=== PATIENT | female | born 1940 | race African-American/Black ===

== ENCOUNTER 2020-01-07 17:26 | Emergency (ER) | payer MEDICARE ==
[~2020-01-07] VITALS: Ht 162.6 cm; Wt 64.0 kg
[~2020-01-07 17:26] MED LIST: ALLO100T PO; AMIT10TA PO; ASCO500T3 PO; ASPI-482 PO; ASPI325T8 PO; BUTA1CAP29 PO; CARV12.547 PO; CARV3.12 PO; CHOL10003 PO; FURO-68 PO; FURO-69 PO; FURO40TA4 PO; HYDR-2868 PO; HYDR-2869 PO; HYDR-3165 PO; HYDR100T24 PO; INSU100I17 SQ; INSU100V12 SQ; ISOS20TA2 PO; ISOS60TA2 PO; LEVO100T5 PO; LISI10TA2 PO; NITR0.4T24 SL; ONDA-84 PO; PANT40TA3 PO; PANT40TA6 PO; POTA20TA4 PO; PRED20TA PO; SCOP1PAT11 TP; SIMV40TA18 PO; TRAM50TA PO; WARF-31 PO; WARF10TA40 PO
[2020-01-07] MEDS ORDERED: ASPIRIN CHEWABLE 81 MG TABLET. PO ONE (17:45)
[2020-01-07] MEDS ORDERED: MORPHINE SULFATE 2 MG/ML DISP.SYRIN. IV/SQ PRN (17:45)
[2020-01-07] MEDS ORDERED: NITROGLYCERIN SUBLINGUAL 0.4 MG BOTTLE OF 25. SL PRN (17:45)
--- NOTE | 2020-01-07 17:51 | EKG ---
[address] [address] Test Date: 2020-01-07 Test Time: 17:39:03 Pat Name: BETSY FERRIS Department: Room: Gender: F Video Intern: DEB : 1940 Requested By: HERMES CARABALLO Order Number: [id number] Reading MD: Peter Cohen Measurements Intervals [place] Rate: 70 P: 0 IN: 190 QRS: 231 QRSD: 130 T: 148 QT: 414 QTc: 450 Interpretive Statements SINUS RHYTHM RIGHT BUNDLE BRANCH BLOCK ABNORMAL ECG Electronically Signed On 01-08-2020 10:36:20 FLOTATION OPERATOR by Peter Cohen
--- NOTE | 2020-01-07 17:58 | PHYS DOC ---
Past History Past Medical History: Diabetes, Hypertension, Hypothyroid, Renal Failure, Other Additional Past Medical Histor: KIDNEY STONS (HERMES CARABALLO APRN) Past Medical History: Anemia, Arthritis, CAD, CHF, Renal Disease, Renal Failure (SHIRIN RICHEY MD) Past Surgical History: Cholecystectomy, , Hysterectomy, Other Additional Past Surgical Histo: BACK SURGERY, FISTULA PLACEMENT (HERMES CARABALLO APRN) Alcohol Use: None Drug Use: None (HERMES CARABLALO APRN) Adult General Chief Complaint Chief Complaint: CHEST PAIN HPI HPI Patient is a 79-year-old female patient with history of diabetes type 2, hypertension, high cholesterol, end-stage kidney disease on dialysis Tuesday last dialyzed Tuesday who presents to the ED today complaining of 8 out of 10 pumping left-sided chest pain that has been going on and off since this morning. Patient denies anything specifically exacerbating or relieving the pain. She states she tried Tylenol with no relief, humidified aspirin 81 mg with no relief. Denies any nausea, vomiting, cough or shortness of breath. (HERMES CARABALLO APRN) Review of Systems Review of Systems Constitutional: Denies fever or chills [] Eyes: Denies change in visual acuity, redness, or eye pain [] HENT: Denies nasal congestion or sore throat [] Respiratory: Denies cough or shortness of breath [] Cardiovascular: Reports left-sided chest pain GI: Denies abdominal pain, nausea, vomiting, bloody stools or diarrhea [] : Denies dysuria or hematuria [] Musculoskeletal: Denies back pain or joint pain [] Integument: Denies rash or skin lesions [] Neurologic: Denies headache, focal weakness or sensory changes [] All other systems were reviewed and found to be within normal limits, except as documented in this note. (HERMES CARABALLO APRN) Current Medications Current Medications Current Medications Medications (Trade) Dose Ordered Sig/Allyn Start Time Stop Time Status Last Admin Dose Admin Aspirin (Aspirin Chewable) 243 mg 1X ONCE 01/07/20 17:45 01/07/20 17:49 DC 01/07/20 17:52 243 MG Morphine Sulfate (Morphine 2mg Syringe) 2 mg PRN Q15MIN PRN 01/07/20 17:45 01/08/20 17:44 Nitroglycerin (Nitrostat) 0.4 mg PRN Q5MIN PRN 01/07/20 17:45 01/08/20 17:44 (HERMES CARABALLO APRN) Allergies Allergies Allergies Coded Allergies Type Severity Reaction Last Updated Verified No Known Drug Allergies 05/22/15 No (HERMES CARABALLO APRN) Physical Exam Physical Exam Constitutional: Well developed, well nourished, no acute distress, non-toxic appearance. [] HENT: Normocephalic, atraumatic, bilateral external ears normal, oropharynx moist, no oral exudates, nose normal. [] Eyes: PERRLA, EOMI, conjunctiva normal, no discharge. [] Neck: Normal range of motion, no tenderness, supple, no stridor. [] Cardiovascular:Heart rate regular rhythm, no murmur [] Lungs & Thorax: Bilateral breath sounds clear to auscultation [] Abdomen: Bowel sounds normal, soft, no tenderness, no masses, no pulsatile masses. [] Skin: Warm, dry, no erythema, no rash. [] Back: No tenderness, no CVA tenderness. [] Extremities: No tenderness, no cyanosis, no clubbing, ROM intact, no edema. [] Neurologic: Alert and oriented X 3, normal motor function, normal sensory function, no focal deficits noted. [] Psychologic: Affect normal, judgement normal, mood normal. [] (HERMES CARABALLO APRN) Current Patient Data Vital Signs Vital Signs Date Time Temp Pulse Resp B/P (MAP) Pulse Ox O2 Delivery O2 Flow Rate FiO2 01/07/20 17:44 99.1 69 18 128/56 (80) 100 Room Air (HERMES CARABALLO APRN) EKG EKG Above by DR. Rayo (HERMES CARABALLO APRN) EKG My interpretation EKG shows a sinus rhythm at 70 bpm. There is an anterior ventricular block and RVH. No findings of acute STEMI with contralateral changes but is an abnormal EKG. Does have Q-in I and a small S in III (SHIRIN RICHEY MD) Radiology/Procedures Radiology/Procedures []PROCEDURE: PORTABLE CHEST 1V EXAM: PORTABLE CHEST 1V 01/07/2020 5:42 PM CLINICAL INDICATION: Chest pain COMPARISON: Chest radiograph 01/25/2016 TECHNIQUE: AP upright view the chest FINDINGS: The patient is tilted to the right. The heart and mediastinum are normal. There are calcifications in the thoracic aorta. Lungs are adequately expanded. There are small pleural effusions and mild bibasilar opacities. No pneumothorax. There are new surgical clips in the right upper extremity. No acute osseous abnormality. IMPRESSION: Small bilateral pleural effusions and bibasilar opacities, likely atelectasis. Electronically signed by: Romana Love MD (01/07/2020 7:45 PM) [id number] DICTATED AND SIGNED BY: ROMANA LOVE MD DATE: 01/07/201944 CC: KRISTINE SCHMITT MD; SHIRIN RICHEY MD; HERMES CARABALLO APRN ~ (HERMES CARABALLO APRN) Heart Score HEART Score for Chest Pain: HEART Score for Chest Pain Response (Comments) Value History Slighlty/Non-Suspicious 0 ECG Normal 0 Age > 65 2 Risk Factors >3 Risk Factors or Hx CAD 2 Troponin >1-<3x Normal Limit 1 Total 5 Risk Factors: Risk Factors: DM, Current or recent (<one month) smoker, HTN, HLP, family history of CAD, obesity. Risk Scores: Risk Factors: DM, Current or recent (<one month) smoker, HTN, HLP, family his tory of CAD, obesity. (HERMES CARABALLO APRN) Course & Med Decision Making Course & Med Decision Making Pertinent Labs and Imaging studies reviewed. (See chart for details) This is a 79-year-old female patient presenting to the ED today with left-sided chest pain that began this morning. EKG is negative. Chest xray noted for small bilateral pleural effusions and bibasilar opacities, likely atelectasis. CBC with a WBC of 3.9 which is lower than patient's baseline. CMP with nothing really acute. Troponin 0.068. Patient has [employer] insurance, we are waiting for insurance approval for her to be admitted at [facility] although she will be transferred to a different facility that accepts [employer] insurance. Spoke with who accepted patient for admission [id number] Cohen who will f/u with patient EMS will transport to [place] (HERMES CARABALLO APRN) Dragon Disclaimer Dragon Disclaimer This electronic medical record was generated, in whole or in part, using a voice recognition dictation system. (HERMES CARABALLO APRN) Departure Departure: Impression: Primary Impression: Chest pain Additional Impressions: NSTEMI (non-ST elevated myocardial infarction) ESRD (end stage renal disease) Disposition: 05 DC/TRF OTHER TYPE INSTITUTI Condition: STABLE Referrals: KRISTINE SCHMITT MD (PCP) Attending Co-Sign Attending Co-Sign The patient was seen and interviewed as well as examined at the bedside. The chart was reviewed. The case was discussed. Agree with the plan of care. (SHIRIN RICHEY MD) Problem Qualifiers Primary Impression: Chest pain Chest pain type: unspecified Qualified Codes: R07.9 - Chest pain, unspecified HERMES CARABALLO APRN Jan 07, 2020 17:58 SHIRIN RICHEY MD Jan 07, 2020 19:21
[2020-01-07 18:46] VITALS: BP 130/55
[2020-01-07 19:21] LABS: BASO % 1 % (0-3); EOS # 0.1 x10^3/uL (0.0-0.7); EOS % 3 % (0-3); HEMATOCRIT 32.3 % (36.0-47.0); HEMOGLOBIN 10.5 g/dL (12.0-15.5); LYMPH # 0.3 x10^3/uL (1.0-4.8); LYMPH % 8 % (24-48); MEAN CORPUSCULAR HEMOGLOBIN 33 pg (25-35); MEAN CORPUSCULAR HGB CONC 33 g/dL (31-37); MEAN CORPUSCULAR VOLUME 101 fL (79-100); MONO # 0.3 x10^3/uL (0.0-1.1); MONO % 7 % (0-9); NEUT # 3.2 x10^3uL (1.8-7.7); NEUT % 82 % (31-73); PLATELET COUNT 203 x10^3/uL (140-400); RED BLOOD COUNT 3.18 x10^6/uL (3.50-5.40); RED CELL DISTRIBUTION WIDTH 14.9 % (11.5-14.5); WHITE BLOOD COUNT 3.9 x10^3/uL (4.0-11.0)
[2020-01-07 19:24] LABS: CALCIUM 10.6 mg/dL (8.5-10.1); CREATININE 5.4 mg/dL (0.6-1.0); GFR 9.3; POTASSIUM 3.6 mmol/L (3.5-5.1)
[2020-01-07 19:40] LABS: ALBUMIN/GLOBULIN RATIO 0.8 (1.0-1.7); TOTAL BILIRUBIN 0.3 mg/dL (0.2-1.0); TOTAL PROTEIN 6.6 g/dL (6.4-8.2)
--- NOTE | 2020-01-07 19:48 | RAD ---
EXAM: PORTABLE CHEST 1V 01/07/2020 5:42 PM CLINICAL INDICATION: Chest pain COMPARISON: Chest radiograph 01/25/2016 TECHNIQUE: AP upright view the chest FINDINGS: The patient is tilted to the right. The heart and mediastinum are normal. There are calcifications in the thoracic aorta. Lungs are adequately expanded. There are small pleural effusions and mild bibasilar opacities. No pneumothorax. There are new surgical clips in the right upper extremity. No acute osseous abnormality. IMPRESSION: Small bilateral pleural effusions and bibasilar opacities, likely atelectasis. Electronically signed by: Romana Love MD (01/07/2020 7:45 PM) [id number]
== END 2020-01-07 23:00 | disposition short-term general hospital (02) ==
LOC: ER 17:26
DX: I21.4 Non-ST elevation (NSTEMI) myocardial infarction (principal); E11.22 Type 2 diabetes mellitus with diabetic chronic kidney disease; I13.2 Hypertensive heart and chronic kidney disease with heart failure and with stage 5 chronic kidney disease, or end stage renal disease; I50.9 Heart failure, unspecified; N18.6 End stage renal disease; M19.90 Unspecified osteoarthritis, unspecified site; Z99.2 Dependence on renal dialysis; Z86.2 Personal history of diseases of the blood and blood-forming organs and certain disorders involving the immune mechanism; Z90.49 Acquired absence of other specified parts of digestive tract; Z98.890 Other specified postprocedural states; Z90.710 Acquired absence of both cervix and uterus
CPT/HCPCS: 36415; 71045; 80053; 82553; 83735; 84443; 84484; 85025; 85610; 85730; 93005; 99285-25

== ENCOUNTER 2020-01-26 14:39 | Observation (INO) | payer MEDICARE ==
[~2020-01-26] VITALS: Ht 162.6 cm; Wt 63.4 kg
--- NOTE | 2020-01-26 14:57 | EKG ---
[facility] ED [facility] [place] [id number] Test Date: 2020-01-26 Test Time: 14:53:21 Pat Name: BETSY FERRIS Department: Room: Gender: F Technical Fellow: : 1940 Requested By: HERMES CARABALLO Order Number: [id number] Reading MD: Measurements Intervals [place] Rate: 71 P: [place]: QRS: -30 QRSD: 138 T: 31 QT: 448 QTc: 492 Interpretive Statements SINUS RHYTHM ABNORMAL LEFT AXIS DEVIATION LEFT ANTERIOR FASCICULAR BLOCK RIGHT BUNDLE BRANCH BLOCK BIFASCICULAR BLOCK RVH WITH REPOLARIZATION ABNORMALITY QRS(T) CONTOUR ABNORMALITY CONSIDER ANTEROSEPTAL MYOCARDIAL DAMAGE ABNORMAL ECG RI6.02 No previous ECG available for comparison
[2020-01-26] MEDS ORDERED: ASPIRIN 325 MG TABLET PO ONE (15:00)
[2020-01-26] MEDS ORDERED: NITROGLYCERIN SUBLINGUAL 0.4 MG BOTTLE OF 25. SL PRN (15:00)
[2020-01-26] MEDS: MORPHINE SULFATE 4 MG/ML DISP.SYRIN. IV/SQ PRN (15:20)
--- NOTE | 2020-01-26 15:24 | PHYS DOC ---
Past History Past Medical History: Anemia, Arthritis, CAD, CHF, Renal Disease, Renal Failure Additional Past Medical Histor: KIDNEY STONS (HERMES CARABALLO APRN) Past Surgical History: Cholecystectomy, , Hysterectomy, Other Additional Past Surgical Histo: BACK SURGERY, FISTULA PLACEMENT (HERMES CARABALLO APRN) Alcohol Use: None Drug Use: None (HERMES CARABALLO APRN) Adult General Chief Complaint Chief Complaint: CHEST PAIN HPI HPI Patient is a 79-year-old female patient with history of CHF, CAD, ESRD on tuesday last dialyzed on because she is on a new schedule due to the holidays. She did Tuesday and this week. Patient presents today complaining of 8 out of 10 left-sided chest pain described as sharp intermittent fever January 06, 2021 when she was seen in the ED and transferred to [facility] [place]. He states the pain has been on and off since then it got worse today and is currently constant. Denies anything specifically exacerbating or relieving the pain. She states she had a cardiac catheterization done which was clean on January 08, 2020. (HERMES CARABALLO APRN) Review of Systems Review of Systems Constitutional: Denies fever or chills [] Eyes: Denies change in visual acuity, redness, or eye pain [] HENT: Denies nasal congestion or sore throat [] Respiratory: Denies cough or shortness of breath [] Cardiovascular: Reports chest pain GI: Denies abdominal pain, nausea, vomiting, bloody stools or diarrhea [] : Denies dysuria or hematuria [] Musculoskeletal: Denies back pain or joint pain [] Integument: Denies rash or skin lesions [] Neurologic: Denies headache, focal weakness or sensory changes [] All other systems were reviewed and found to be within normal limits, except as documented in this note. (HERMES CARABALLO APRN) Current Medications Current Medications Current Medications Medications (Trade) Dose Ordered Sig/Allyn Start Time Stop Time Status Last Admin Dose Admin Aspirin (Arya Aspirin) 325 mg 1X ONCE 01/26/20 15:00 01/26/20 15:01 DC Morphine Sulfate (Morphine 4mg Syringe) 4 mg PRN Q15MIN PRN 01/26/20 15:00 01/27/20 14:59 Nitroglycerin (Nitrostat) 0.4 mg PRN Q5MIN PRN 01/26/20 15:00 01/27/20 14:59 (HERMES CARABALLO APRN) Allergies Allergies Allergies Coded Allergies Type Severity Reaction Last Updated Verified No Known Drug Allergies 05/22/15 No (HERMES CARABALLO APRN) Physical Exam Physical Exam Constitutional: Well developed, well nourished, no acute distress, non-toxic appearance. [] HENT: Normocephalic, atraumatic, bilateral external ears normal, oropharynx moist, no oral exudates, nose normal. [] Eyes: PERRLA, EOMI, conjunctiva normal, no discharge. [] Neck: Normal range of motion, no tenderness, supple, no stridor. [] Cardiovascular:Heart rate regular rhythm Pulmonary-Diminished breath sounds to posterior lung bases Abdomen: Bowel sounds normal, soft, no tenderness, no masses, no pulsatile masses. [] Skin: Warm, dry, no erythema, no rash. Right upper extremity dialysis fistula with positive thrill and bruit. Back: No tenderness, no CVA tenderness. [] Extremities: No tenderness, no cyanosis, no clubbing, ROM intact, no edema. [] Neurologic: Alert and oriented X 3, normal motor function, normal sensory function, no focal deficits noted. [] Psychologic: Affect normal, judgement normal, mood normal. [] (HERMES CARABALLO APRN) EKG EKG [] (HERMES CARABALLO APRN) Radiology/Procedures Radiology/Procedures []PROCEDURE: PORTABLE CHEST 1V INDICATION: Reason: chest pain / Spl. Instructions: / History: COMPARISON: January 07, 2020 FINDINGS: Single view of chest obtained. Enlarged cardiomediastinal silhouette with calcific atherosclerosis. Degenerative changes of the spine with osteophyte formation. Bilateral basilar airspace opacity. Mild interstitial prominence bilaterally IMPRESSION: * Hazy opacities at lung bases could be atelectasis or infiltrate. * Mild interstitial prominence is again seen bilaterally. * Enlarged cardiomediastinal silhouette again seen Electronically signed by: Kristian Lopez MD (01/26/2020 4:16 PM) [id number] DICTATED AND SIGNED BY: KRISTIAN LOPEZ MD DATE: 01/26/20 [id number] CC: KRISTINE SCHMITT MD; [facility]; MULUPEGDianeHERMES HUNTER ~MTH0 0 (HERMES CARABALLO APRN) Heart Score HEART Score for Chest Pain: HEART Score for Chest Pain Response (Comments) Value History Slighlty/Non-Suspicious 0 ECG Normal 0 Age > 65 2 Risk Factors >3 Risk Factors or Hx CAD 2 Troponin < Normal Limit 0 Total 4 Risk Factors: Risk Factors: DM, Current or recent (<one month) smoker, HTN, HLP, family history of CAD, obesity. Risk Scores: Risk Factors: DM, Current or recent (<one month) smoker, HTN, HLP, family history of CAD, obesity. (HERMES CARABALLO APRN) Course & Med Decision Making Course & Med Decision Making Pertinent Labs and Imaging studies reviewed. (See chart for details) This is a 79-year-old female patient presenting to the ED today with left-sided chest pain that has been going on since January 07, 2020. On that day she was seen in this ED and transferred to [facility].. She had a clean cardiac catheterization done on January 10, 2020. She states the pain has been on and off since then but got worse in the last 1 day. EKG, chest x-ray, troponin, CBC, CMP, no acute findings. Will tx to [facility] due to dialysis needs Spoke with Dr. Silveira who accepted patient for admission at [facility]. (HERMES CARABALLO APRN) Course & Med Decision Making I assumed care of patient who is still awaiting transport to [facility]. Due to current COVID-19 pandemic and high capacity at all locations, patient still pending transport to [facility] and updated that this may not occur until tomorrow Patient had dialysis Tuesday, Tuesday and in anticipation of travel over the weekend with next scheduled dialysis session on Tuesday. I discussed case at length with patient and possibility of admission to [facility] despite not having nephrology services readily available. I discussed case with Dr. Silveira who agreed to admission here at [facility] in the interim with potential for transfer out to [facility] versus other facility with nephrology if this is indicated. At present, patient's laboratory values not indicating any need for urgent and/or emergent dialysis. He was agreeable to admission. Patient updated on this plan of care, she was amenable. All questions and concerns addressed prior to transportation to [facility] for further medical management (TESSIE RESTREPO DO) Dragon Disclaimer Dragon Disclaimer This electronic medical record was generated, in whole or in part, using a voice recognition dictation system. (HERMES CARABALLO APRN) Departure Departure: Impression: Primary Impression: Chest pain Additional Impression: ESRD (end stage renal disease) Disposition: 01 DC HOME SELF CARE/HOMELESS Admitting Physician: Matthew Silveira (TESSIE RESTREPO DO) Condition: STABLE Referrals: KRISTINE SCHMITT MD (PCP) Problem Qualifiers Primary Impression: Chest pain Chest pain type: unspecified Qualified Codes: R07.9 - Chest pain, unspecified HERMES CARABALLO APRN Jan 26, 2020 15:24 TESSIE RESTREPO DO Jan 26, 2020 23:31
[2020-01-26 16:01] LABS: BASO % 1 % (0-3); EOS # 0.1 x10^3/uL (0.0-0.7); EOS % 3 % (0-3); HEMATOCRIT 34.7 % (36.0-47.0); HEMOGLOBIN 11.3 g/dL (12.0-15.5); LYMPH # 0.3 x10^3/uL (1.0-4.8); LYMPH % 8 % (24-48); MEAN CORPUSCULAR HEMOGLOBIN 33 pg (25-35); MEAN CORPUSCULAR HGB CONC 33 g/dL (31-37); MEAN CORPUSCULAR VOLUME 102 fL (79-100); MONO # 0.2 x10^3/uL (0.0-1.1); MONO % 7 % (0-9); NEUT # 2.6 x10^3uL (1.8-7.7); NEUT % 81 % (31-73); PLATELET COUNT 205 x10^3/uL (140-400); RED CELL DISTRIBUTION WIDTH 14.8 % (11.5-14.5); WHITE BLOOD COUNT 3.2 x10^3/uL (4.0-11.0)
[2020-01-26 16:08] LABS: CALCIUM 9.7 mg/dL (8.5-10.1); GFR 10.2; POTASSIUM 3.6 mmol/L (3.5-5.1)
--- NOTE | 2020-01-26 16:19 | RAD ---
INDICATION: Reason: chest pain / Spl. Instructions: / History: COMPARISON: January 07, 2020 FINDINGS: Single view of chest obtained. Enlarged cardiomediastinal silhouette with calcific atherosclerosis. Degenerative changes of the spine with osteophyte formation. Bilateral basilar airspace opacity. Mild interstitial prominence bilaterally IMPRESSION: * Hazy opacities at lung bases could be atelectasis or infiltrate. * Mild interstitial prominence is again seen bilaterally. * Enlarged cardiomediastinal silhouette again seen Electronically signed by: Cedric Joy MD (01/26/2020 4:16 PM) [id number]
[2020-01-26 16:24] LABS: ALBUMIN 3.2 g/dL (3.4-5.0); ALBUMIN/GLOBULIN RATIO 0.8 (1.0-1.7); MAGNESIUM 2.1 mg/dL (1.8-2.4); TOTAL BILIRUBIN 0.5 mg/dL (0.2-1.0); TOTAL PROTEIN 7.3 g/dL (6.4-8.2)
[2020-01-26 16:36] LABS: % EOS 3 % (0-5); % LYMPHS 9 % (24-48); % MONOS 7 % (0-10); % SEGS 81 % (35-66)
[2020-01-26 16:37] LABS: PLT ESTIMATE ADEQUATE (ADEQUATE)
[2020-01-27 00:17] VITALS: BP 167/80
[2020-01-27 05:00] VITALS: BP 176/67
[2020-01-27] MEDS ORDERED: WARF7.5T45 PO (05:03)
[2020-01-27] MEDS ORDERED: ATOR10TA60 PO (05:03)
[2020-01-27] MEDS ORDERED: ISOS60TA2 PO (05:03)
[2020-01-27] MEDS ORDERED: HYDR100T24 PO (05:03)
[2020-01-27] MEDS ORDERED: CINA30TA2 PO (05:03)
[2020-01-27] MEDS: MORPHINE SULFATE 4 MG/ML DISP.SYRIN. IV/SQ PRN (09:32)
[2020-01-27 09:38] LABS: BACTERIA,URINE FEW /HPF (0-FEW); BILIRUBIN,URINE NEG (NEG); CLARITY,URINE HAZY; COLOR,URINE YELLOW; GLUCOSE,URINE NEG (NEG); NITRITE,URINE NEG (NEG); RBC,URINE 20-40 /HPF (0-2); SQUAMOUS EPITHELIAL CELL,UR MOD /LPF; UROBILINOGEN,URINE 0.2 mg/dL (0.2 mg/dL); WBC,URINE RARE /HPF (0-4); YEAST,URINE PRESENT /HPF
[2020-01-27] MEDS ORDERED: traMADol 50 MG TABLET PO PRN (10:30)
[2020-01-27 10:41] VITALS: BP 159/60
[2020-01-27] MEDS: LIDOCAINE (700MG/PATCH) PATCH. TD SCH (11:20)
--- NOTE | 2020-01-27 11:31 | HP ---
ADMIT DATE: 01/27/2020 HISTORY OF PRESENT ILLNESS: This is a very pleasant 79-year-old -[place] female who came in through the Emergency Room, has a long history of multiple medical problems. She has been having intermittent chest pain here for the last 2-3 days prior to being seen in the Emergency Room and being admitted for rule out AR protocol. She has had previous non-STEMI and the pain came on at rest and radiated in the left chest and left shoulder area and described it as a sharp pain. The patient also notes that she has been in the past where she is on dialysis on Tuesday, , Tuesday. She said she did changed this week to Tuesday, Tuesday, because of the holiday next week. In any case, the patient because of this chest pain was admitted to the hospital. Interesting enough, the chest x-ray shows possible atelectasis or infiltrate, mild interstitial prominence and enlarged cardiomediastinal silhouette with calcific atherosclerosis. In any case, she did have some mildly elevated BNP. She was somewhat short of breath. She is marked orthopneic. The patient will be admitted for heart failure, rule out AR protocol, Cardiology consultation, Nephrology consultation, if necessary may need to transfer her. Right now, she is stable. PAST MEDICAL HISTORY: Noted for cataract, headaches, heart attacks, heart failure, coronary artery disease, cardiac catheterization, ____, hypertension, pulmonary emboli, pneumonia, cholecystectomy, GERD, hysterectomy, x 2, renal disease, kidney stones, urinary tract infection, dialysis, arthritis, endocrine disorders, diabetes, hypothyroidism, pneumococcal vaccination is up-to-date as well as skin problems. She has a chronic rash on her arms, possibly allergic to some of the medication she is taking. FAMILY HISTORY: Hypertension in mother and father, mother and father also had diabetes. ALLERGIES: No known allergies. MEDICATIONS: Reviewed with ____ Pharmacy Department of this hospital including her warfarin, which will be changed over to Eliquis. Start atorvastatin 10 mg a day, isosorbide mononitrate, carvedilol, aspirin, tramadol, Protonix 40 mg b.i.d., insulin NovoLog 70/30 12 units at bedtime, Sensipar 30 mg daily, ascorbic acid 500, vitamin D3 2000, allopurinol 100 mg daily, hydralazine actually is 50 mg 3 times a day and 100 mg 3 times a day, carvedilol 3.125 mg b.i.d. SOCIAL HISTORY: No smoking, alcohol or drug use. REVIEW OF SYSTEMS: Outside of the shortness of breath, the patient denies any headaches, visual change, blurred vision, double vision. Denies any melena, hematochezia, or hematemesis. Does have chronic lower back pain, had previous surgery on her back, which was noted before. The patient notes she has chronic pain. We will use Lidoderm patch there. She also has this chronic rash on her skin, which is markedly notable throughout and she scratches at it. PHYSICAL EXAMINATION: GENERAL: The patient otherwise on exam is a very pleasant -[place] female. VITAL SIGNS: Blood pressure 167/78, respiratory rate 18, pulse 60, afebrile, 95-97% oxygen saturation, weight is 64 kilos. HEENT: The patient's head was atraumatic and normocephalic. Eyes: PERRLA without jaundice. The mouth and throat were normal. NECK: Supple, without JVD, carotid bruits nor thyromegaly. LUNGS: The patient's lungs were diminished throughout, poor movement of air, some crackles noted in the bases. CARDIOVASCULAR: Regular sinus rhythm; however, there was a 2-3/6 systolic ejection murmur over the left sternal border. NEUROLOGIC: As noted above. The patient is stable. LABORATORY DATA: EKG shows left anterior fascicular block, consider anteroseptal myocardial infarction, abnormal EKG noted. White count 3.2, hemoglobin 11.3, hematocrit 34, MCV of 102. Chemistries; 130, 3.6, 30 and 5. Her BNP was 10,300. Cardiac enzyme elevated at 0.06. TSH of 2. IMPRESSION: Chest pain, rule out myocardial infarction, history of non-ST elevation myocardial infarction in the past. The patient has had heart catheterization. We will continue to monitor. Consult Cardiology. Acute on top of chronic diastolic heart failure. The patient seems a little bit fluid overloaded, elevated BNP as well as some crackles in her lungs. Questionable to give her Lasix on her dialysis, but may need to leave this to Cardiology to help us with that. The patient also has chronic lower back pain, chronic dermatitis, type 2 diabetes, neutropenia, anemia of chronic disease, moderate protein malnutrition, hematuria. Continue to monitor her accordingly and adjust her medications and consult with Cardiology. KRISTINE SCHMITT MD DR: MAR/troy JOB#: [id number] / [id number]
[2020-01-27 13:15] VITALS: BP 172/66
[2020-01-27] MEDS: TRIAMCINOLONE ACETONIDE 0.5% TOPICAL CREAM 15GM TUBE. TP SCH ×2 (13:18→20:27)
[2020-01-27] MEDS ORDERED: NON FORMULARY ITEM (Hydralazine Hcl 1 TAB) PO SCH (14:00)
[2020-01-27 19:00] VITALS: BP 155/62
[2020-01-27] MEDS: INSULIN NPH/REG HUM 70/30 300 UNITS/3 ML VIAL. SQ SCH (20:26)
[2020-01-27] MEDS: APIXABAN 2.5 MG TABLET PO SCH (20:28)
[2020-01-27] MEDS: PANTOPRAZOLE 40 MG TABLET. PO SCH (20:28)
[2020-01-27] MEDS: ATORVASTATIN CALCIUM 10 MG TABLET. PO SCH (20:28)
[2020-01-27] MEDS: CARVEDILOL 3.125 MG TABLET PO SCH (20:29)
[2020-01-27] MEDS: PATCH REMOVAL. MC SCH (20:38)
[2020-01-27 22:55] VITALS: BP 144/69
[2020-01-28 05:00] VITALS: BP 155/69
[2020-01-28] MEDS: LEVOTHYROXINE 100 MCG TABLET PO SCH (05:32)
--- NOTE | 2020-01-28 07:59 | PDOC2 ---
CARDIAC CONSULT DATE OF CONSULT DOS: DATE: 01/28/20 TIME: 07:57 REASON FOR CONSULT Reason for Consult CHF REFERRING PHYSICIAN Referring Physician Dr. Chang SOURCE Source: Chart review, Patient HPI History of Present Illness This is a 79 yo female who presented secondary to chest pain. Reports she began having sharp, stabbing pain in her left chest yesterday. [place] a little short of breath. No dizziness, diaphoresis, or palpitations. Pain was worse with deep breathing. This morning, feeling slightly short of air. Had episode of vomiting this morning following ambulation to the restroom. Has a history of ESRD on HD. Is normally Tuesday, , Tuesday HD. This past week, switch he HD scheduled due to the Holiday this week. Last HD was . Does make urine. PAST MEDICAL HISTORY Past Medical History Cardiovascular: CAD, CHF, HTN, Hyperlipidemia, Valve insufficiency Pulmonary: Pulmonary embolus CENTRAL NERVOUS SYSTEM: Other (No pertinent history) GI: GERD Heme/Onc: Anemia NOS, Other (chronic anticoagulation) Hepatobiliary: Cholelithiasis Musculoskeletal: Osteoarthritis Infectious disease: No pertinent hx ENT: Allergic Rhinitis Renal/: Chronic renal failure Endocrine: Diabetes, Hypothyroidism, Hyperparathyroidism PAST SURGICAL HISTORY Past Surgical History Cholecystectomy, , Hysterectomy, Other (lumbar surgery) FAMILY HISTORY Family History: Other (noncontributory ) SOCIAL HISTORY Smoke: No ALCOHOL: none Drugs: None Lives: with Family (son ) CURRENT MEDICATIONS Current Medications Current Medications Aspirin (Arya Aspirin) 325 mg 1X ONCE PO Last administered on 01/26/20at 15:20; Start 01/26/20 at 15:00; Stop 01/26/20 at 15:01; Status DC Nitroglycerin (Nitrostat) 0.4 mg PRN Q5MIN PRN SL CP RATING > 1/10; Start 01/26/20 at 15:00; Stop 01/27/20 at 14:59; Status DC Morphine Sulfate (Morphine 4mg Syringe) 4 mg PRN Q15MIN PRN IV/SQ PAIN GREATER THAN 3/10 Last administered on 01/27/20at 09:32; Start 01/26/20 at 15:00; Stop 01/27/20 at 14:59; Status DC Allopurinol (Zyloprim) 200 mg DAILY PO ; Start 01/28/20 at 09:00; Stop 01/27/20 at 10:52; Status DC Ascorbic Acid (Vitamin C) 1,000 mg DAILY PO ; Start 01/28/20 at 09:00; Stop 01/27/20 at 10:48; Status DC Aspirin (Aspirin Enteric Coated) 81 mg DAILY PO ; Start 01/28/20 at 09:00 Atorvastatin Calcium (Lipitor) 10 mg QHS PO Last administered on 01/27/20at 20:28; Start 01/27/20 at 21:00 Carvedilol (Coreg) 3.125 mg BID PO ; Start 01/27/20 at 21:00 Vitamin D (Vitamin D3) 2,000 unit DAILY PO ; Start 01/28/20 at 09:00 Cinacalcet (Sensipar) 30 mg DAILY PO ; Start 01/28/20 at 09:00 Hydralazine HCl (Apresoline) 100 mg TID PO Last administered on 01/27/20at 20:30; Start 01/27/20 at 14:00 Levothyroxine Sodium (Synthroid) 100 mcg DAILY06 PO Last administered on 01/28/20at 05:32; Start 01/28/20 at 06:00 Pantoprazole Sodium (Protonix) 40 mg BID PO Last administered on 01/27/20at 20:28; Start 01/27/20 at 21:00 Tramadol HCl (Ultram) 50 mg PRN Q12HR PRN PO SEVERE PAIN 7-10 Last administered on 01/27/20at 20:28; Start 01/27/20 at 10:30 Warfarin Sodium (Coumadin) 7.5 mg DAILY PO ; Start 01/28/20 at 09:00; Stop 01/27/20 at 10:52; Status DC Non-Formulary Medication (Hydralazine Hcl ) 1 tab TID PO ; Start 01/27/20 at 14:00; Stop 01/27/20 at 11:05; Status DC Insulin Human Isoph/Insulin Regular (HumuLIN 70-30 VIAL) 12 units QHS SQ ; Start 01/27/20 at 21:00 Isosorbide Mononitrate (Imdur) 60 mg DAILY PO ; Start 01/28/20 at 09:00 Warfarin Sodium (Coumadin) 8 mg DAILY PO ; Start 01/28/20 at 09:00; Stop 01/27/20 at 10:52; Status DC Triamcinolone Acetonide (Kenalog 0.5%) 1 honorio BID TP Last administered on 01/27/20at 20:27; Start 01/27/20 at 10:45 Lidocaine (Lidoderm) 1 patch DAILY TD Last administered on 01/27/20at 11:20; Start 01/27/20 at 11:00 Miscellaneous (Lidoderm Patch Removal) 1 ea QHS MC Last administered on 01/27/20at 20:38; Start 01/27/20 at 21:00 Allopurinol (Zyloprim) 100 mg DAILY PO ; Start 01/28/20 at 09:00 Apixaban (Eliquis) 2.5 mg BID PO Last administered on 01/27/20at 20:28; Start 01/27/20 at 21:00 Active Scripts Active Tramadol Hcl (Tramadol HCl) 50 Mg Tablet 50 Mg PO Q12HR PRN Hydralazine Hcl 50 Mg Tablet 50 Mg PO TID Coreg (Carvedilol) 3.125 Mg Tablet 1 Tab PO BID Reported Isosorbide Mononitrate Er (Isosorbide Mononitrate) 60 Mg Tab.er.24h 1 Tab PO DAILY Warfarin Sodium 7.5 Mg Tablet 7.5 Mg PO DAILY Sensipar (Cinacalcet Hcl) 30 Mg Tablet 1 Tab PO DAILY 30 Days Atorvastatin Calcium 10 Mg Tablet 10 Mg PO QHS Hydralazine Hcl 100 Mg Tablet 1 Tab PO TID Ascorbic Acid 500 Mg Tablet 1,000 Mg PO DAILY last dose this morning next dose tomorrow Vitamin D3 (Cholecalciferol (Vitamin D3)) 1,000 Unit Tablet 2,000 Unit PO DAILY last dose this morning next dose tomorrow Pantoprazole Sodium 40 Mg Tablet. 40 Mg PO BID last dose this morning next dose tonight Novolog Mix 70-30 Vial (Insuln Asp Prt/Insulin Aspart) 100 Unit/1 Ml Vial 12 Unit SQ HS held last night for blood sugar 133 may resume tonight- check your blood sugar before taking Aspir 81 (Aspirin) 81 Mg Tablet. 81 Mg PO DAILY last dose this morning next dose tomorrow Warfarin Sodium 10 Mg Tablet 8 Mg PO DAILY last dose yesterday next dose this afternoon Allopurinol 100 Mg Tablet 2 Tab PO DAILY last dose this morning next dose tomorrow Levothyroxine Sodium 100 Mcg Tablet 100 Mcg PO DAILYAC last dose this morning next dose tomorrow ALLERGIES Allergies: Coded Allergies: No Known Drug Allergies (Unverified , 05/22/15) ROS Review of Systems 14 point ROS conducted with pertinent positives noted above in HPI PHYSICAL EXAM Physical Exam General: Alert, Oriented X3, Cooperative, No acute distress HEENT: Atraumatic, Mucous membr. moist/pink Lungs: Other (basilar crackles) Heart: Regular rate (SR), Normal S1, Normal S2, Other (3/6 apical systolic murmur. ) Abdomen: Soft, No tenderness Extremities: No cyanosis, trace LE edema Skin: warm and dry Neuro: Normal speech, Sensation intact Psych/Mental Status: Mental status NL, Mood NL MUSCULOSKELETAL: Osteoarthritic changes both hands VITALS Vital Signs Vital Signs Date Time Temp Pulse Resp B/P (MAP) Pulse Ox O2 Delivery O2 Flow Rate FiO2 01/28/20 05:00 98.0 66 18 155/69 (97) 92 Room Air LABS LABS Laboratory Tests Test 01/26/20 15:40 01/26/20 19:15 01/26/20 23:00 01/27/20 07:50 White Blood Count 3.2 x10^3/uL (4.0-11.0) Red Blood Count 3.40 x10^6/uL (3.50-5.40) Hemoglobin 11.3 g/dL (12.0-15.5) Hematocrit 34.7 % (36.0-47.0) Mean Corpuscular Volume 102 fL (79-100) Mean Corpuscular Hemoglobin 33 pg (25-35) Mean Corpuscular Hemoglobin Concent 33 g/dL (31-37) Red Cell Distribution Width 14.8 % (11.5-14.5) Platelet Count 205 x10^3/uL (140-400) Neutrophils (%) (Auto) 81 % (31-73) Lymphocytes (%) (Auto) 8 % (24-48) Monocytes (%) (Auto) 7 % (0-9) Eosinophils (%) (Auto) 3 % (0-3) Basophils (%) (Auto) 1 % (0-3) Neutrophils # (Auto) 2.6 x10^3uL (1.8-7.7) Lymphocytes # (Auto) 0.3 x10^3/uL (1.0-4.8) Monocytes # (Auto) 0.2 x10^3/uL (0.0-1.1) Eosinophils # (Auto) 0.1 x10^3/uL (0.0-0.7) Basophils # (Auto) 0.0 x10^3/uL (0.0-0.2) Segmented Neutrophils % 81 % (35-66) Lymphocytes % 9 % (24-48) Monocytes % 7 % (0-10) Eosinophils % 3 % (0-5) Platelet Estimate Adequate (ADEQUATE) Prothrombin Time 28.2 SEC (9.4-11.4) Prothromb Time International Ratio 2.8 (0.9-1.1) Activated Partial Thromboplast Time 30 SEC (23-33) Sodium Level 135 mmol/L (136-145) Potassium Level 3.6 mmol/L (3.5-5.1) Chloride Level 100 mmol/L (98-107) Carbon Dioxide Level 25 mmol/L (21-32) Anion Gap 10 (6-14) Blood Urea Nitrogen 30 mg/dL (7-20) Creatinine 5.0 mg/dL (0.6-1.0) Estimated GFR (Cockcroft-Gault) 10.2 BUN/Creatinine Ratio 6 (6-20) Glucose Level 99 mg/dL (70-99) Calcium Level 9.7 mg/dL (8.5-10.1) Magnesium Level 2.1 mg/dL (1.8-2.4) Total Bilirubin 0.5 mg/dL (0.2-1.0) Aspartate Amino Transf (AST/SGOT) 19 U/L (15-37) Alanine Aminotransferase (ALT/SGPT) 17 U/L (14-59) Alkaline Phosphatase 73 U/L (46-116) Creatine Kinase 128 U/L (26-192) Creatine Kinase MB (Mass) 0.7 ng/mL (0.0-3.6) Creatine Kinase MB Relative Index 0.5 % (0-4) Troponin I Quantitative 0.054 ng/mL (0-0.055) 0.055 ng/mL (0-0.055) 0.064 ng/mL (0-0.055) XH-Lhj-B-Type Natriuretic Peptide 88420 pg/mL (0-449) Total Protein 7.3 g/dL (6.4-8.2) Albumin 3.2 g/dL (3.4-5.0) Albumin/Globulin Ratio 0.8 (1.0-1.7) Lipase 79 U/L (73-393) Thyroid Stimulating Hormone (TSH) 2.210 uIU/mL (0.358-3.740) Urine Collection Type Unknown Urine Color Yellow Urine Clarity Hazy Urine pH 7.0 Urine Specific Jackson 1.020 Urine Protein >100 mg/dl (NEG-TRACE) Urine Glucose (UA) Neg mg/dL (NEG) Urine Ketones (Stick) Neg mg/dL (NEG) Urine Blood Small (NEG) Urine Nitrite Neg (NEG) Urine Bilirubin Neg (NEG) Urine Urobilinogen Dipstick 0.2 mg/dL (0.2 mg/dL) Urine Leukocyte Esterase Neg (NEG) Urine RBC 20-40 /HPF (0-2) Urine WBC Rare /HPF (0-4) Urine Squamous Epithelial Cells Mod /LPF Urine Bacteria Few /HPF (0-FEW) Urine Yeast Present /HPF ECHOCARDIOGRAM Echocardiogram <Conclusion> The left ventricle is normal size. The left ventricular systolic function is normal and the ejection fraction is within normal range. The Ejection Fraction is 55-60%. There is mild concentric left ventricular hypertrophy. Doppler and Color Flow revealed trace aortic regurgitation. Calculated aortic valve area is 1.87 cm2 with maximum pressure gradient of 45 mmHg and mean pressure gradient of 24 mmHg. Doppler and color-flow analysis revealed mild to moderate aortic stenosis. Doppler and Color-flow revealed mild mitral regurgitation. Doppler and Color Flow revealed mild to moderate tricuspid regurgitation with an estimated PAP of 42 mmHg. DATE: 01/09/20 0942 HEART CATH Heart Cath CORONARY ANGIOGRAPHY: LM is a large caliber vessel with normal angiographic appearance. LAD is a large caliber vessel with proximal 30% stenosis. D1 is a moderate caliber vessel with normal angiographic appearance. LCx is a moderate caliber non-dominant vessel with mild luminal irregularities. OM1 is a moderate caliber vessel with normal angiographic appearance. RCA is a large caliber dominant vessel with mild luminal irregularities. RPDA is a moderate caliber vessel with normal angiographic appearance. Conclusion 1. No significant coronary disease. Likely Type 2 NSTEMI Recommendations Aggressive Medical Therapy DATE: 01/08/20 1400 ASSESSMENT/PLAN Assessment/Plan 1. Chest pain, atypical. Cath 01/08/20 reveled 30 % lesion to LAD otherwise no significant CAD. 2. Acute on chronic diastolic CHF: Recent echo with normal EF and wall motion 3. Mild troponin elevation; highest 0.064. Type II, demand ischemia. Recent cath as noted above 4. ESRD on HD; lst HD . 4. Hyperlipidemia; statin 5. Hypertension; controlled 6. Hx of PE/DVT with chronic warfarin therapy: INR 2.8 7. Hypothyroidism: on replacement 8. ; mild to moderate per recent echo 9. Chronic RBBB 10. Leukopenia Recommendations Will try dose of Lasix as she makes urine Additional fluid off loading per HD; is schedule for HD tomorrow Continue secondary prevention measures. Supportive care JUAN FRANCISCO JONES APRN Jan 28, 2020 07:59
[2020-01-28] MEDS ORDERED: FUROSEMIDE 40 MG/4 ML VIAL IVP ONE (08:30)
[2020-01-28] MEDS ORDERED: POTASSIUM CHLORIDE 10 MEQ TABLET.ER. PO ONE (08:30)
[2020-01-28] MEDS ORDERED: ONDANSETRON ODT 4 MG TAB.RAPDIS PO PRN (08:45)
[2020-01-28] MEDS: CARVEDILOL 3.125 MG TABLET PO SCH ×2 (08:50→20:14)
[2020-01-28] MEDS: APIXABAN 2.5 MG TABLET PO SCH ×2 (08:50→20:12)
[2020-01-28] MEDS: CINACALCET HCL 30 MG TABLET PO SCH (08:51)
[2020-01-28] MEDS: PANTOPRAZOLE 40 MG TABLET. PO SCH ×2 (08:51→20:13)
[2020-01-28] MEDS: ISOSORBIDE MONONITRATE ER 30 MG TAB.ER.24H PO SCH (08:59)
[2020-01-28] MEDS: CHOLECALCIFEROL (VITAMIN D3) 1,000 UNIT TABLET PO SCH (09:00)
[2020-01-28] MEDS ORDERED: ALLOPURINOL 100 MG TABLET. PO SCH (09:00)
[2020-01-28] MEDS ORDERED: WARFARIN 7.5 MG TABLET. PO SCH (09:00)
[2020-01-28] MEDS: ALLOPURINOL 100 MG TABLET. PO SCH (09:00)
[2020-01-28] MEDS: ASPIRIN ENTERIC COATED 81 MG TABLET.DR. PO SCH (09:00)
[2020-01-28] MEDS ORDERED: WARFARIN 10 MG TABLET. PO SCH (09:00)
[2020-01-28] MEDS: TRIAMCINOLONE ACETONIDE 0.5% TOPICAL CREAM 15GM TUBE. TP SCH ×2 (09:00→20:43)
[2020-01-28] MEDS ORDERED: ASCORBIC ACID 500 MG TABLET PO SCH (09:00)
[2020-01-28] MEDS: LIDOCAINE (700MG/PATCH) PATCH. TD SCH (09:01)
[2020-01-28 10:45] VITALS: BP 129/67
[2020-01-28 12:49] LABS: BASO % 0 % (0-3); EOS # 0.1 x10^3/uL (0.0-0.7); EOS % 2 % (0-3); HEMATOCRIT 29.8 % (36.0-47.0); HEMOGLOBIN 9.7 g/dL (12.0-15.5); LYMPH # 0.2 x10^3/uL (1.0-4.8); LYMPH % 5 % (24-48); MEAN CORPUSCULAR HEMOGLOBIN 33 pg (25-35); MEAN CORPUSCULAR HGB CONC 33 g/dL (31-37); MEAN CORPUSCULAR VOLUME 101 fL (79-100); MONO # 0.3 x10^3/uL (0.0-1.1); MONO % 7 % (0-9); NEUT # 3.9 x10^3uL (1.8-7.7); NEUT % 86 % (31-73); PLATELET COUNT 195 x10^3/uL (140-400); RED BLOOD COUNT 2.94 x10^6/uL (3.50-5.40); RED CELL DISTRIBUTION WIDTH 14.8 % (11.5-14.5); WHITE BLOOD COUNT 4.5 x10^3/uL (4.0-11.0)
[2020-01-28 12:58] LABS: CALCIUM 9.1 mg/dL (8.5-10.1); CREATININE 5.5 mg/dL (0.6-1.0); GFR 9.1
--- NOTE | 2020-01-28 14:44 | RAD ---
ACUTE ABDOMEN SERIES History: Abdominal pain and nausea Comparison: AP chest, January 26, 2020. Findings: Frontal chest and supine and upright views of the abdomen. Bibasilar airspace disease is worse. Stable cardiomegaly. Atherosclerotic and tortuous thoracic and abdominal aorta. There is small left pleural effusion. There is no pneumothorax. No pneumoperitoneum is identified. No dilated air-filled loops of bowel are seen. Bowel gas pattern is nonobstructive. Scattered stool in the colon. Cholecystectomy. There is infrarenal IVC filter. No obvious organomegaly. Bones unremarkable. IMPRESSION: 1. Worsening of bibasilar airspace disease. 2. Left pleural effusion. 3. Nonobstructive bowel gas pattern. Electronically signed by: Montana Mckeon MD (01/28/2020 2:41 PM) [facility]
[2020-01-28 15:17] VITALS: BP 123/68
[2020-01-28 19:27] VITALS: BP 122/61
[2020-01-28] MEDS: ATORVASTATIN CALCIUM 10 MG TABLET. PO SCH (20:13)
[2020-01-28] MEDS: PATCH REMOVAL. MC SCH (20:39)
[2020-01-28] MEDS: INSULIN NPH/REG HUM 70/30 300 UNITS/3 ML VIAL. SQ SCH (20:40)
--- NOTE | 2020-01-28 22:05 | PN ---
DATE: SUBJECTIVE: The patient came in with chest pain and abdominal pain this morning with nausea and vomiting. X-ray showed a continued possible infiltrate in the right lower lobe, although the patient herself was not running any temperature. She was started on Rocephin. We are also attempting her to transfer for dialysis in the morning as well as multiple other problems including her nausea, vomiting and severe pneumonia of the right lower lobe. OBJECTIVE: VITAL SIGNS: Blood pressure 122/60, respiratory rate 20, pulse 62, afebrile. GENERAL: The patient is alert and oriented. LUNGS: Show some crackles in the right lower lobe. CARDIOVASCULAR: Regular sinus rhythm with 3 to 4/6 systolic ejection murmur. ABDOMEN: Soft, diffuse tenderness in the epigastric area, but imaging does not show any acute blockage or obstruction there. There is a left pleural effusion and nonobstructive bowel gas pattern. NEUROLOGIC: The patient is otherwise resting fairly comfortably and will continue to be monitored. Her hemoglobin did drop down to 9.7 and 29. IMPRESSION AND PLAN: Pneumonia of the right lower lobe; epigastric discomfort with nausea and vomiting; anemia; leukopenia; chronic kidney disease stage 5, on dialysis; slightly elevated troponins. TSH and lipase all normal. Her BNP was 10,000. We tried her on low dose Lasix, so she can produce some urine. Otherwise, her albumin was low at 3.2. Some moderate protein malnutrition, try to get her discharge and transferred in the morning. KRISTINE SCHMITT MD DR: MAR/troy JOB#: [id number] / [id number]
[2020-01-28 22:20] VITALS: BP 133/61
[2020-01-29] MEDS: LEVOTHYROXINE 100 MCG TABLET PO SCH (04:58)
[2020-01-29 05:09] VITALS: BP 131/65
[2020-01-29] MEDS: CHOLECALCIFEROL (VITAMIN D3) 1,000 UNIT TABLET PO SCH (07:50)
[2020-01-29] MEDS: ASPIRIN ENTERIC COATED 81 MG TABLET.DR. PO SCH (07:50)
[2020-01-29] MEDS: ISOSORBIDE MONONITRATE ER 30 MG TAB.ER.24H PO SCH (07:50)
[2020-01-29] MEDS: PANTOPRAZOLE 40 MG TABLET. PO SCH (07:50)
[2020-01-29] MEDS: ALLOPURINOL 100 MG TABLET. PO SCH (07:50)
[2020-01-29 07:51] VITALS: BP 131/65
[2020-01-29] MEDS: CINACALCET HCL 30 MG TABLET PO SCH (07:51)
[2020-01-29] MEDS: APIXABAN 2.5 MG TABLET PO SCH (07:51)
[2020-01-29] MEDS: CARVEDILOL 3.125 MG TABLET PO SCH (07:51)
[2020-01-29] MEDS: LIDOCAINE (700MG/PATCH) PATCH. TD SCH (07:52)
[2020-01-29] MEDS: TRIAMCINOLONE ACETONIDE 0.5% TOPICAL CREAM 15GM TUBE. TP SCH (07:56)
[2020-01-29] MEDS ORDERED: TRIA15CR50 TP (08:38)
[2020-01-29] MEDS ORDERED: ONDA4TAB12 PO (08:38)
[2020-01-29] MEDS ORDERED: LIDO700A21 TD (08:38)
[2020-01-29] MEDS ORDERED: ALLO100T PO (08:38)
[2020-01-29] MEDS ORDERED: APIX2.5T PO (08:38)
[2020-01-29] MEDS ORDERED: CEFU250T59 PO (09:08)
--- NOTE | 2020-01-30 05:31 | DS ---
DATE OF DISCHARGE: 01/29/2020 HOSPITAL COURSE: A 79-year-old female, recently had non-STEMI earlier this month. The patient has made good progress, although she came in for the last 2-3 days, been having problems with a sharp pain in her chest. While in the hospital though, she began to develop nausea and vomiting and had epigastric discomfort as well. The patient was admitted, given fluids, but to a small degree. The patient is also in chronic renal failure stage V and on dialysis. The patient was started on Rocephin for there was an infiltrative process in the right lower lobe. Although her vital signs indicate no fever, blood pressure 130/60, respiratory rate 20, pulse 60, afebrile. The patient does have a history of elevated sugars, which may be compromising her immune system. Her BNP was 10,300. The patient's albumin low at 3.2. She was seen by Cardiology who attempted to give her Lasix to see if she could produce any urine. The patient also was attempted to be transferred down to [place] and apparently, they were on diversion. The patient did not want to wait and basically left against medical advice as she was encouraged to continue IV antibiotic therapy, felt best that she needed to be in the hospital, but could not stay here at [facility] because she needed dialysis down there at [place] and consequently, [place] did not have a bed for her, so this became quite a problem for the patient. She was placed on oral antibiotic therapy, continue that. Follow up with her dialysis physician down there at [place] and make further assessment as indicated. The patient's nausea and vomiting seemed to resolve. She was able to eat and drink by the time she left and she will continue to follow up accordingly as an outpatient. IMPRESSION: Pneumonia of the right lower lobe, unknown etiology; epigastric discomfort with nausea, vomiting, anemia, leukopenia; chronic kidney disease stage V, on dialysis; acute on top of chronic congestive heart failure, moderate protein malnutrition, severe aortic valve stenosis. The patient will be discharged home. Follow up with Cardiology as well as she needs to get down to her dialysis appointment today and that may help her with her situation with her fluid retention, heart failure. We will continue to monitor her as an outpatient. She will be on a heart healthy, diabetic, dialysis diet and make further evaluation on her as indicated. She will follow up with her optometric aide as well as other specialists as indicated by her multiplicity of medical problems. KRISTINE SCHMITT MD DR: MAR/troy JOB#: [id number] / [id number]
== END 2020-01-29 08:43 | disposition still patient (30) ==
LOC: ER 14:39 → 1 SOUTH 01-27 → OBSVTOIN 01-27 00:48 → INTOOBSV 01-27 00:48
PROVIDERS: ADMIT Internal Medicine; ATTEND Family Medicine
DX: J18.9 Pneumonia, unspecified organism (principal); I13.2 Hypertensive heart and chronic kidney disease with heart failure and with stage 5 chronic kidney disease, or end stage renal disease; I50.23 Acute on chronic systolic (congestive) heart failure; N18.6 End stage renal disease; D72.829 Elevated white blood cell count, unspecified; I35.0 Nonrheumatic aortic (valve) stenosis; D63.1 Anemia in chronic kidney disease; E44.0 Moderate protein-calorie malnutrition; M19.90 Unspecified osteoarthritis, unspecified site; D64.9 Anemia, unspecified; R60.9 Edema, unspecified; E78.5 Hyperlipidemia, unspecified; E11.22 Type 2 diabetes mellitus with diabetic chronic kidney disease; E03.9 Hypothyroidism, unspecified; I25.10 Atherosclerotic heart disease of native coronary artery without angina pectoris; I25.2 Old myocardial infarction; I45.10 Unspecified right bundle-branch block; K21.9 Gastro-esophageal reflux disease without esophagitis; K80.20 Calculus of gallbladder without cholecystitis without obstruction; E21.3 Hyperparathyroidism, unspecified; G89.29 Other chronic pain; R74.8 Abnormal levels of other serum enzymes; L30.9 Dermatitis, unspecified; Z90.49 Acquired absence of other specified parts of digestive tract; Z90.710 Acquired absence of both cervix and uterus; Z98.891 History of uterine scar from previous surgery; Z99.2 Dependence on renal dialysis; Z68.24 Body mass index [BMI] 24.0-24.9, adult; Z86.711 Personal history of pulmonary embolism; Z87.442 Personal history of urinary calculi; Z87.440 Personal history of urinary (tract) infections; Z95.1 Presence of aortocoronary bypass graft; Z98.49 Cataract extraction status, unspecified eye; Z79.4 Long term (current) use of insulin; Z79.01 Long term (current) use of anticoagulants; Z79.82 Long term (current) use of aspirin; Z98.890 Other specified postprocedural states; Z86.718 Personal history of other venous thrombosis and embolism
CPT/HCPCS: 36415; 71045; 74022; 80048; 80053; 81001; 82553; 82947; 83690; 83735; 83880; 84443; 84484; 85007; 85025; 85610; 85730; 93005; 96365; 96375; 96376; 99285; G0378; J0696; J1815; J1940; J2270; Q0162; G0379

== ENCOUNTER 2020-03-10 17:06 | Emergency (ER) | payer MEDICARE ==
[~2020-03-10] VITALS: Ht 162.6 cm; Wt 63.0 kg
[~2020-03-10 17:06] MED LIST changes: +APIX2.5T PO; +ATOR10TA60 PO; +CEFU250T59 PO; +CINA30TA2 PO; +LIDO700A21 TD; +ONDA4TAB12 PO; +TRIA15CR50 TP; +WARF7.5T45 PO
--- NOTE | 2020-03-10 17:54 | RAD ---
XR CHEST 1V Clinical History: Reason: CHEST PAIN / Spl. Instructions: / History: Technique: AP view of the chest was obtained at 03/10/2020 5:31 PM. Comparison: January 26, 2020. Findings: The heart is borderline enlarged. The pulmonary vessels appear normal. Mild reticular opacities of sterling ngs is likely chronic pulmonary fibrosis. The lungs and pleural margins are clear. Impression: Stable appearance of the chest. Electronically signed by: Scott Mcmahan III, MD (03/10/2020 5:52 PM) [facility]
--- NOTE | 2020-03-10 18:07 | EKG ---
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
--- NOTE | 2020-03-10 18:13 | PHYS DOC ---
Past History Past Medical History: Anemia, Arthritis, CAD, CHF, Diabetes, DVT, Fibromyalgia, GERD, High Cholesterol, Hypertension, Hypothyroid, Kidney Stones, Renal Disease, Renal Failure, UTI, Other Additional Past Medical Histor: KIDNEY STONS Past Surgical History: Cholecystectomy, , Hysterectomy, Other Additional Past Surgical Histo: BACK SURGERY, FISTULA PLACEMENT Alcohol Use: None Drug Use: None General Adult EDM: Chief Complaint: CHEST PAIN HPI: HPI: "...I was having chest pain.. at home.. It was melissa sharp.. center of my c hest..... It better now.. I ve bee coughing.. more short of breath.. I ve done my dialysis... Tuesday.....I am due tomorrow morning.. I am e//Sat.... Just really weak..." Patient is a 79 year old female who presents with above hx and complaints of central chest pain. Pain started home tonight just prior to arrival as persisted until arrival to emergency department. Patient gets dialysis at [facility]. Patient has been on diet at dialysis the last 2 years secondary to hypertension and diabetes. Patient has past medical history of pneumonia recurrent, epigastric GERD, vomiting, anemia, leukopenia, chronic renal disease stage V on dialysis Tuesday, and Tuesday, acute on chronic congestive heart failure, protein malnutrition, severe aortic aortic valve stenosis, arthritis, chronic pain, coronary artery disease, and hypertension. The patient pt. follows with Dr. Schmitt. Patient has been around other family members as well as people at dialysis center who have been sick with Covid, but no sp ecific contact.. No recent travel outside the [place] area. Review of Systems: Review of Systems: Constitutional: Denies fever or chills Eyes: Denies change in visual acuity HENT: Denies nasal congestion or sore throat Respiratory: Complains of cough and shortness of breath Cardiovascular: Complains of sharp chest pain or edema GI: Denies abdominal pain, nausea, vomiting, bloody stools or diarrhea : Denies dysuria Musculoskeletal: Complains of arthritis and joint pain Integument: Denies rash Neurologic: Denies headache, focal weakness or sensory changes Endocrine: Denies polyuria or polydipsia Lymphatic: Denies swollen glands Psychiatric: Denies depression or anxiety Family History: Family History: See nursing for home meds Current Medications: Current Meds: See nursing for home meds Allergies: Allergies: Allergies Coded Allergies Type Severity Reaction Last Updated Verified No Known Drug Allergies 05/22/15 No Physical Exam: PE: Constitutional: Chronically ill and appearance. [] HENT: Normocephalic, atraumatic, bilateral external ears normal, oropharynx moist, no oral exudates, nose normal. [] Eyes: PERRLA, EOMI, conjunctiva normal, no discharge. [] Neck: Normal range of motion, no tenderness, supple, no stridor. JVD Cardiovascular: Bradycardia heart rate regular rhythm, no murmur [] PMI to the left Lungs & Thorax: Bilateral breath sounds bilateral basilar crackles on auscultation [] Abdomen: Bowel sounds normal, soft, no tenderness, no masses, no pulsatile masses. [] Skin: Warm, dry, no erythema, no rash. [] Back: No tenderness, no CVA tenderness. [] Extremities: No tenderness, no cyanosis, no clubbing, ROM intact, ankle edema. No cording appreciated. Good thrill in right arm AV graft Neurologic: Alert and oriented X 3, moves all extremities on request, does have distal sensory, no focal deficits noted. [] Psychologic: Affect anxious , judgement normal, mood normal. [] EKG: EKG: My interpretation EKG shows a sinus bradycardia 59 bpm. That is an occasional premature atrial contraction as well as on the monitor of some PVCs. There is left axis deviation. A left anterior fascicular block. Abnormal EKG and repolarization. Radiology/Procedures: Radiology/Procedures: [][address] [address] IMAGING REPORT Signed PATIENT: BETSY FERRIS ACCOUNT: [id number] : 1940 LOCATION: ER AGE: 79 SEX: F EXAM STATUS: REG ER ORD. PHYSICIAN: LACEY WANG DO REASON: CHEST PAIN PROCEDURE: PORTABLE CHEST 1V XR CHEST 1V Clinical History: Reason: CHEST PAIN / Spl. Instructions: / History: Technique: AP view of the chest was obtained at 03/10/2020 5:31 PM. Comparison: January 26, 2020. Findings: The heart is borderline enlarged. The pulmonary vessels appear normal. Mild ret icular opacities of lungs is likely chronic pulmonary fibrosis. The lungs and pleural margins are clear. Impression: Stable appearance of the chest. Electronically signed by: Eleuterio Veronica III, MD (03/10/2020 5:52 PM) [facility] DICTATED AND SIGNED BY: ELEUTERIO VERONICA III, MD DATE: 03/10/20 5260 CC: KRISTINE SCHMITT MD; [facility] ~MTH0 0 Heart Score: HEART Score for Chest Pain: HEART Score for Chest Pain Response (Comments) Value History Moderately Suspicious 1 ECG Nonspecific Repolarizatio 1 Age > 65 2 Risk Factors 1 or 2 Risk Factors 1 Troponin < Normal Limit 0 Total 5 Risk Factors: Risk Factors: DM, Current or recent (<one month) smoker, HTN, HLP, family history of CAD, obesity. Risk Scores: Score 0 - 3: 2.5% MACE over next 6 weeks - Discharge Home Score 4 - 6: 20.3% MACE over next 6 weeks - Admit for Clinical Observation Score 7 - 10: 72.7% MACE over next 6 weeks - Early Invasive Strategies Course & Med Decision Making: Course & Med Decision Making Pertinent Labs and Imaging studies reviewed. (See chart for details) Discussed presentation, testing and tx. plan with Dr. Schmitt. Recommend pt. transfer to [facility] Discussed presentation, testing and tx. plan with Dr. Silveira, accept pt. PMC for CP rule out and HD Impression: 1. Chest Pain- atypical 2. ESRDz - HD - Tue, Thurs, Sat ( BUN 45/5.5 Creat) 3. Accelerated HTN 4. Hx CARDz 5. COVID rule out 6. Bradycardia [] Dragon Disclaimer: Dragon Disclaimer: This electronic medical record was generated, in whole or in part, using a voice recognition dictation system. Departure Departure: Referrals: KRISTINE SCHMITT MD (PCP) Claudia Disclaimer This chart was dictated in whole or in part using Voice Recognition software in a busy, high-work load, and often noisy Emergency Department environment. It may contain unintended and wholly unrecognized errors or omissions. Dragon Disclaimer This chart was dictated in whole or in part using Voice Recognition software in a busy, high-work load, and often noisy Emergency Department environment. It may contain unintended and wholly unrecognized errors or omissions. Dragon Disclaimer This chart was dictated in whole or in part using Voice Recognition software in a busy, high-work load, and often noisy Emergency Department environment. It may contain unintended and wholly unrecognized errors or omissions. SHIRIN RICHEY MD Mar 10, 2020 18:13
[2020-03-10] MEDS ORDERED: cloNIDine TTS-2 1 PATCH PATCH TD ONE (18:15)
[2020-03-10] MEDS ORDERED: cloNIDine HCL 0.1 MG TABLET PO ONE (18:15)
[2020-03-10 19:40] LABS: BASO % 1 % (0-3); EOS # 0.1 x10^3/uL (0.0-0.7); EOS % 2 % (0-3); HEMATOCRIT 36.5 % (36.0-47.0); LYMPH # 0.4 x10^3/uL (1.0-4.8); LYMPH % 12 % (24-48); MEAN CORPUSCULAR HEMOGLOBIN 32 pg (25-35); MEAN CORPUSCULAR HGB CONC 33 g/dL (31-37); MEAN CORPUSCULAR VOLUME 99 fL (79-100); MONO # 0.2 x10^3/uL (0.0-1.1); MONO % 6 % (0-9); NEUT # 2.8 x10^3uL (1.8-7.7); NEUT % 78 % (31-73); PLATELET COUNT 179 x10^3/uL (140-400); RED CELL DISTRIBUTION WIDTH 14.3 % (11.5-14.5); WHITE BLOOD COUNT 3.6 x10^3/uL (4.0-11.0)
[2020-03-10 19:43] LABS: CALCIUM 9.7 mg/dL (8.5-10.1); CREATININE 5.5 mg/dL (0.6-1.0); GFR 9.1; POTASSIUM 4.5 mmol/L (3.5-5.1)
[2020-03-10 19:56] LABS: ALBUMIN 3.4 g/dL (3.4-5.0); DIRECT BILIRUBIN 0.1 mg/dL (0.0-0.2); MAGNESIUM 2.3 mg/dL (1.8-2.4); TOTAL BILIRUBIN 0.5 mg/dL (0.2-1.0); TOTAL PROTEIN 7.5 g/dL (6.4-8.2)
[2020-03-10] MEDS ORDERED: ASPIRIN 325 MG TABLET PO ONE (20:15)
[2020-03-10 22:11] LABS: BARBITURATES NEG (NEG); BENZODIAZEPINES NEG (NEG); CANNABINOIDS NEG (NEG); COCAINE NEG (NEG); METHADONE NEG (NEG); OPIATES NEG (NEG); PHENCYCLIDINE NEG (NEG)
[2020-03-10 22:17] LABS: BILIRUBIN,URINE NEG (NEG); CLARITY,URINE CLEAR; COLOR,URINE YELLOW; GLUCOSE,URINE NEG (NEG); NITRITE,URINE NEG (NEG); UROBILINOGEN,URINE 0.2 mg/dL (0.2 mg/dL)
[2020-03-10 22:18] LABS: AMPHETAMINE/METHAMPHETAMINE NEG (NEG)
[2020-03-10 23:11] VITALS: BP 133/57
== END 2020-03-10 23:50 | disposition short-term general hospital (02) ==
LOC: ER 17:06
DX: R07.89 Other chest pain (principal); I12.0 Hypertensive chronic kidney disease with stage 5 chronic kidney disease or end stage renal disease; N18.6 End stage renal disease; I25.10 Atherosclerotic heart disease of native coronary artery without angina pectoris; R00.1 Bradycardia, unspecified; M19.90 Unspecified osteoarthritis, unspecified site; E11.9 Type 2 diabetes mellitus without complications; M79.7 Fibromyalgia; K21.9 Gastro-esophageal reflux disease without esophagitis; E78.00 Pure hypercholesterolemia, unspecified; E03.9 Hypothyroidism, unspecified; Z99.2 Dependence on renal dialysis; Z86.718 Personal history of other venous thrombosis and embolism; Z87.442 Personal history of urinary calculi; Z90.49 Acquired absence of other specified parts of digestive tract; Z90.710 Acquired absence of both cervix and uterus; Z98.890 Other specified postprocedural states
CPT/HCPCS: 36415; 71045; 80048; 80076; 80307; 81001; 82550; 83690; 83735; 83880; 84484; 85025; 85610; 85730; 93005; 99285